=== PATIENT | female | born 1980 | race Two or more races ===

== ENCOUNTER 2025-05-18 07:57 | Emergency (ER) | payer OTHER ==
[~2025-05-18] VITALS: Ht 162.6 cm; Wt 57.6 kg
[2025-05-18] MEDS ORDERED: SYNTHROID88 MCG PO (08:05)
[2025-05-18] MEDS ORDERED: LIDOCAINE HCL 1% 10ML VIAL ONE (08:44)
[2025-05-18] MEDS ORDERED: 8 HOUR PAIN RE650 M1 PO (09:22)
[2025-05-18] MEDS ORDERED: DIPHTH,PERTUSS(ACELL),TET VAC 0.5 ML SYRINGE IM ONE (09:26)
[2025-05-18] MEDS ORDERED: TETANUS & DIPHTHERIA TOX,ADULT 0.5 ML VIAL IM ONE (09:30)
[2025-05-18] MEDS ORDERED: DIPHTH,PERTUSS(ACELL),TET VAC 0.5 ML VIAL IM ONE (09:30)
== END 2025-05-18 09:34 | disposition home or self-care (01) ==
LOC: ER 07:57
DX: S01.81XA Laceration without foreign body of other part of head, initial encounter (principal); W18.39XA Other fall on same level, initial encounter; Y93.02 Activity, running; Y92.89 Other specified places as the place of occurrence of the external cause; Y99.9 Unspecified external cause status; Z88.8 Allergy status to other drugs, medicaments and biological substances

== ENCOUNTER 2025-05-18 14:57 | Emergency (ER) | payer OTHER ==
[~2025-05-18] VITALS: Ht 162.6 cm; Wt 57.6 kg
[~2025-05-18 14:57] MED LIST: 8 HOUR PAIN RE650 M1 PO; SYNTHROID88 MCG PO
== END 2025-05-18 17:59 | disposition home or self-care (01) ==
LOC: ER 14:57
DX: S01.81XD Laceration without foreign body of other part of head, subsequent encounter (principal); X58.XXXD Exposure to other specified factors, subsequent encounter; Z88.8 Allergy status to other drugs, medicaments and biological substances